=== PATIENT | female | born 1955 | race Caucasian/White ===

== ENCOUNTER → 2016-10-23 | Outpatient (CLI) | payer OTHER ==
[~2016-10-23] MED LIST: CELEXA40 MG PO; HYDROCODONE/APAP PO
== END ==
LOC: MC.RAD 14:20
DX: Z12.31 Encounter for screening mammogram for malignant neoplasm of breast (principal)

== ENCOUNTER → 2017-11-22 | Outpatient (CLI) | payer OTHER | LOC: MC.RAD 14:15 | DX: Z12.31 Encounter for screening mammogram for malignant neoplasm of breast (principal) ==

== ENCOUNTER → 2018-12-24 | Outpatient (CLI) | payer BC | LOC: MC.RAD 09:59 | DX: Z12.31 Encounter for screening mammogram for malignant neoplasm of breast (principal) ==